=== PATIENT | male | born 1995 | race Caucasian/White ===

== ENCOUNTER 2022-05-27 16:53 | Emergency (ER) | payer SELFPAY ==
[~2022-05-27] VITALS: Ht 172.7 cm; Wt 81.6 kg
[2022-05-27 17:08] VITALS: BP 118/69
[2022-05-27] MEDS ORDERED: KETOROLAC 30 MG/ML VIAL IM ONE (17:30)
[2022-05-27] MEDS ORDERED: FLONAS NS (17:32)
[2022-05-27] MEDS ORDERED: IBUP-2218 PO (17:32)
[2022-05-27] MEDS ORDERED: PROM118S5 PO (17:32)
--- NOTE | 2022-05-27 18:30 | NUR ---
26 y/o male bib self, c/o nasal congestions for 1 week with new onset of fever that started last night. pt denies n/v/d. pt states he has also been having chills, body aches, and general body pain. pt denies anyone else sick at home. a&ox4, emirati speaking, ambulates with steady gait. lung sounds clear bl, heart sounds even and regular. pmh: denies nka med: tylenol
--- NOTE | 2022-05-27 18:40 | NUR ---
reilly and influenza swabbed at this time
--- NOTE | 2022-05-27 18:47 | NUR ---
Patient discharged with v/s stable. Written and verbal after care instructions given and explained. Patient alert, oriented and verbalized understanding of instructions. Ambulatory with steady gait. All questions addressed prior to discharge. ID band removed. Patient advised to follow up with PMD. Rx of flonase, ibuprofen, promethazine (sent) given. Patient educated on indication of medication including possible reaction and side effects. Opportunity to ask questions provided and answered.
[2022-05-27 18:48] VITALS: BP 118/69
== END 2022-05-27 18:40 | disposition home or self-care (01) ==
LOC: MED 16:53
DX: B34.9 Viral infection, unspecified (principal); Z20.822 Contact with and (suspected) exposure to COVID-19; Z79.899 Other long term (current) drug therapy
CPT/HCPCS: 99283